=== PATIENT | female | born 1945 | race Caucasian/White ===

== ENCOUNTER → 2016-11-13 | Outpatient (CLI) | payer OTHER | LOC: BMCIMAGING 10:47 | PROVIDERS: ATTEND Internal Medicine | DX: Z12.31 Encounter for screening mammogram for malignant neoplasm of breast (principal) | CPT/HCPCS: G0202 ==

== ENCOUNTER 2016-11-18 21:17 | Emergency (ER) | payer OTHER ==
[2016-11-18 22:07] LABS: % IMMATURE GRANULYOCYTES 0.2 % (0.0-1.1); ABSOLUTE IMMATURE GRANULOCYTES 0.02 10^3/uL (0.00-0.10); ADD DIFF? NO; ADD MORPH? NO; ADD SCAN? NO; ATYPICAL LYMPHOCYTE FLAG 10 (0-99); FRAGMENT RBC FLAG 0 (0-99); HEMATOCRIT 42.9 % (38.0-47.0); HEMOGLOBIN 14.6 g/dL (12.6-16.3); LEFT SHIFT FLG 0 (0-99); LIPEMIA HEMOLYSIS FLAG 90 (0-99); MEAN CELL HEMOGLOBIN 31.2 pg (27.9-34.1); MEAN CELL VOLUME 91.7 fL (81.5-99.8); MEAN PLATELET VOLUME 10.1 fL (8.7-11.7); PLATELET CLUMPS FLAG 0 (0-99); PLATELET COUNT 339 10^3/uL (150-400); RED BLOOD CELL COUNT 4.68 10^6/uL (4.18-5.33); RED CELL DISTRIBUTION WIDTH 13.4 % (11.5-15.2)
[2016-11-18 22:24] LABS: ANION GAP 11 mEq/L (8-16); CALCIUM 9.7 mg/dL (8.5-10.4); CARBON DIOXIDE 24 mEq/l (22-31); CHLORIDE 103 mEq/L (97-110); CREATININE 0.7 mg/dL (0.6-1.0); GLOMERULAR FILTRATION RATE > 60; GLUCOSE 104 mg/dL (70-100); SODIUM 138 mEq/L (134-144)
[2016-11-18 22:40] LABS: COLOR PALE YELLOW; LEUKOCYTE ESTERASE,URINE NEGATIVE (NEGATIVE); NITRITE,URINE NEGATIVE (NEGATIVE)
[2016-11-18 23:27] VITALS: BP 122/63
--- NOTE | 2016-11-18 23:41 | EDPHY ---
H & P Stated Complaint: abd pain Time Seen by Provider: 11/18/16 22:07 HPI/ROS: Chief Complaint: Abdominal pain HPI: 71-year-old woman who is been having intermittent lower abdominal pain for the last 12 hours. It is sharp it comes and goes. When it comes it comes and lasts only seconds then goes completely away. At worst is a 6 to 7/10. She is having several of these episodes an hour. No nausea, vomiting, diarrhea or constipation. No urinary symptoms. Does not have any prior surgeries. Past medical history. No fevers or chills. No shortness of breath. She does state that she has had some mild dull chronic right side abdominal pain for the last 2 and half months was seen by her primary care physician is scheduled for an ultrasound on Wednesday. ROS: 10 point Review of Systems is negative except as noted in the HPI. PMH: None Medications: Ambien p.r.n. Allergies: Iodine from IVP dye. She has had CT scans of the abdomen with contrast but has been premedicated. Social History: No smoking, occasional alcohol, no recreational drug use Family History: non-contributory Physical Exam: Gen: Awake, Alert, No Distress HEENT: Nose: no rhinorrhea Eyes: PERRLA, EOMI Mouth: Moist mucosa Neck: Supple, no JVD Chest: nontender, lungs clear to auscultation Heart: S1, S2 normal, no murmur Abd: Soft, non-tender, no guarding Back: no CVA tenderness, no midline tenderness Ext: no edema, non-tender Skin: no rash Neuro: CN II-XII intact, Sensation grossly intact, Strength 5/5 in bilateral upper and lower extremities - Personal History Current Tetanus Diphtheria and Acellular Pertussis (TDAP): Yes - Medical/Surgical History Hx Asthma: No Hx Chronic Respiratory Disease: No Hx Diabetes: No Hx Cardiac Disease: Yes Hx Renal Disease: No Hx Cirrhosis: No Hx Alcoholism: No Hx HIV/AIDS: No Hx Splenectomy or Spleen Trauma: No Other PMH: PMH: MVP, HEMMORHOIDS - Social History Smoking Status: Never smoked Constitutional: Initial Vital Signs Temperature (C) 36.9 C 11/18/16 21:31 Heart Rate 86 11/18/16 21:31 Respiratory Rate 20 11/18/16 21:31 Blood Pressure 135/66 H 11/18/16 21:31 O2 Sat (%) 97 11/18/16 21:31 O2 Delivery Mode Room Air Allergies/Adverse Reactions: iodine [Iodine] Allergy (Verified 11/18/16 21:30) Home Medications: Medication Instructions Recorded Aspirin 325 mg (OTC) 12/26/15 Ambien 11/18/16 Melatonin 11/18/16 Medical Decision Making ED Course/Re-evaluation: 71-year-old with episodes of sharp abdominal pain. She has a completely soft benign abdomen. Blood work and urinalysis are completely unremarkable. She has normal vital signs. She is otherwise very well appearing. There is no evidence of acute intra-abdominal infection, blockage or vascular process. We have had a long conversation about workup in that I do not feel a CT scan would be particularly useful she has no tenderness or pain at this time. She has been reassured. She will return if this pain is returns and persists. She has not had pain in over an hour since she has been here. She will follow up with primary care physician in the next day or 2, return for worsening. - Data Points Laboratory Results: Laboratory Results 11/18/16 21:40 11/18/16 21:40 11/18/16 11/18/16 11/18/16 22:30 21:40 21:40 WBC 9.91 10^3/uL H 10^3/uL (3.80-9.50) RBC 4.68 10^6/uL 10^6/uL (4.18-5.33) Hgb 14.6 g/dL g/dL (12.6-16.3) Hct 42.9 % % (38.0-47.0) MCV 91.7 fL fL (81.5-99.8) MCH 31.2 pg pg (27.9-34.1) MCHC 34.0 g/dL g/dL (32.4-36.7) RDW 13.4 % % (11.5-15.2) Plt Count 339 10^3/uL 10^3/uL (150-400) MPV 10.1 fL fL (8.7-11.7) Neut % (Auto) 56.6 % % (39.3-74.2) Lymph % (Auto) 34.3 % % (15.0-45.0) [place] % (Auto) 5.5 % % (4.5-13.0) Eos % (Auto) 2.7 % % (0.6-7.6) Baso % (Auto) 0.7 % % (0.3-1.7) Nucleat RBC Rel Count 0.0 % % (0.0-0.2) Absolute Neuts (auto) 5.60 10^3/uL 10^3/uL (1.70-6.50) Absolute Lymphs (auto) 3.40 10^3/uL H 10^3/uL (1.00-3.00) Absolute Monos (auto) 0.55 10^3/uL 10^3/uL (0.30-0.80) Absolute Eos (auto) 0.27 10^3/uL 10^3/uL (0.03-0.40) Absolute Basos (auto) 0.07 10^3/uL 10^3/uL (0.02-0.10) Absolute Nucleated RBC 0.00 10^3/uL 10^3/uL (0-0.01) Immature Gran % 0.2 % % (0.0-1.1) Immature Gran # 0.02 10^3/uL 10^3/uL (0.00-0.10) Sodium 138 mEq/L mEq/L (134-144) Potassium 4.0 mEq/L mEq/L (3.5-5.2) Chloride 103 mEq/L mEq/L (97-110) Carbon Dioxide 24 mEq/l mEq/l (22-31) Anion Gap 11 mEq/L mEq/L (8-16) BUN 18 mg/dL mg/dL (7-23) Creatinine 0.7 mg/dL mg/dL (0.6-1.0) Estimated GFR > 60 Glucose 104 mg/dL H mg/dL (70-100) Calcium 9.7 mg/dL mg/dL (8.5-10.4) Urine Color PALE YELLOW Urine Appearance CLEAR Urine pH 6.0 (5.0-7.5) Ur Specific [place] 1.005 (1.002-1.030) Urine Protein NEGATIVE (NEGATIVE) Urine Ketones NEGATIVE (NEGATIVE) Urine Blood NEGATIVE (NEGATIVE) Urine Nitrate NEGATIVE (NEGATIVE) Urine Bilirubin NEGATIVE (NEGATIVE) Urine Urobilinogen NEGATIVE EU EU (0.2-1.0) Ur Leukocyte Esterase NEGATIVE (NEGATIVE) Urine RBC 1-3 /hpf /hpf (0-3) Urine WBC 1-3 /hpf /hpf (0-3) Ur Epithelial Cells TRACE /lpf /lpf (NONE-1+) Urine Glucose NEGATIVE (NEGATIVE) Departure - Departure Disposition: Home, Routine, Self-Care Clinical Impression: Abdominal pain Condition: Good Instructions: Abdominal Pain (ED) Additional Instructions: Return to the emergency department the pain returns and persists, worsening pain , fevers, chills, nausea, vomiting, or any other concerns. Follow up with primary care physician in next 1-2 days for re-evaluation. Referrals: Rosa Mccray MD [Primary Care Provider] - As per Instructions
[2016-11-18 23:55] VITALS: PULSE 78; RESP 16; TEMP 98.2; O2SAT 97
== END 2016-11-18 23:54 | disposition home or self-care (01) ==
DX: R10.9 Unspecified abdominal pain (principal); Z79.82 Long term (current) use of aspirin

== ENCOUNTER → 2016-11-23 | Outpatient (CLI) | payer OTHER | LOC: BMCIMAGING 09:24 | PROVIDERS: ATTEND Internal Medicine | DX: D25.9 Leiomyoma of uterus, unspecified (principal) ==

== ENCOUNTER 2017-01-23 17:48 | Emergency (ER) | payer OTHER ==
[2017-01-23 17:55] VITALS: TEMP 98.1
[2017-01-23] MEDS ORDERED: CIPROFLOXACIN 400 MG/DEXTROSE 200 ML IV ONE (18:34)
[2017-01-23] MEDS ORDERED: HYDROmorphONE/DILAUDID 1 MG/ML SYR IVP ONE (18:34)
[2017-01-23] MEDS ORDERED: NS 1,000 ML IV ONE (18:34)
[2017-01-23] MEDS ORDERED: ONDANSETRON 4 MG/2 ML VIAL IVP ONE (18:34)
--- NOTE | 2017-01-23 18:38 | EDPHY ---
H & P Stated Complaint: llq abd pain hx diverticulitis Time Seen by Provider: 01/23/17 18:28 HPI/ROS: CHIEF COMPLAINT: Left lower quadrant pain HISTORY OF PRESENT ILLNESS: The patient is a 71-year-old female who comes to the emergency department complaining of left lower quadrant pain exam [place] similar to previous episodes of diverticulitis. In the past she is improved with oral antibiotics. She states that her symptoms began today. She has not had a fever. No vomiting. Slight constipation. She does not have any significant medical history. She denies chest pain or shortness of breath. No urinary symptoms. REVIEW OF SYSTEMS: Constitutional: denies: chills, fever, recent illness, recent injury EENTM: denies: blurred vision, double vision, nose congestion Respiratory: denies: cough, shortness of breath Cardiac: denies: chest pain, irregular heart rate, lightheadedness, palpitations Gastrointestinal/Abdominal: See HPI denies: diarrhea, nausea, vomiting, blood streaked stools Genitourinary: denies: dysuria, frequency, hematuria, pain Musculoskeletal: denies: joint pain, muscle pain Skin: denies: lesions, rash, jaundice, bruising Neurological: denies: headache, numbness, paresthesia, tingling, dizziness, weakness Hematologic/Lymphatic: denies: blood clots, easy bleeding, easy bruising Immunologic/allergic: denies: HIV/AIDS, transplant EXAM: GENERAL: Well-appearing, well-nourished and in no acute distress. HEAD: Atraumatic, normocephalic. EYES: Pupils equal round and reactive to light, extraocular movements intact, sclera anicteric, conjunctiva are normal. ENT: TMs normal, nares patent, oropharynx clear without exudates. Moist mucous membranes. NECK: Normal range of motion, supple without lymphadenopathy or JVD. LUNGS: Breath sounds clear to auscultation bilaterally and equal. No wheezes rales or rhonchi. HEART: Regular rate and rhythm without murmurs, rubs or gallops. ABDOMEN: Mild right lower quadrant tenderness, no rebound , normoactive bowel sounds. No guarding, no rebound. No masses appreciated. BACK: No CVA tenderness, no spinal tenderness, step-offs or deformities EXTREMITIES: Normal range of motion, no pitting or edema. No clubbing or cyanosis. NEUROLOGICAL: Cranial nerves II through XII grossly intact. Normal speech, normal gait. 5/5 strength, normal movement in all extremities, normal sensation PSYCH: Normal mood, normal affect. SKIN: Warm, dry, normal turgor, no visible rashes or lesions. Source: Patient Exam Limitations: No limitations - Personal History Current Tetanus/Diphtheria Vaccine: Yes - Medical/Surgical History Hx Asthma: No Hx Chronic Respiratory Disease: No Hx Diabetes: No Hx Cardiac Disease: Yes Hx Renal Disease: No Hx Cirrhosis: No Hx Alcoholism: No Hx HIV/AIDS: No Hx Splenectomy or Spleen Trauma: No Other PMH: PMH: MVP, HEMMORHOIDS diverticulitis - Family History Significant Family History: No pertinent family hx - Social History Smoking Status: Never smoked Alcohol Use: Sober Drug Use: None Constitutional: Initial Vital Signs Temperature (C) 36.7 C 01/23/17 17:53 Heart Rate 83 01/23/17 17:53 Respiratory Rate 18 01/23/17 17:53 Blood Pressure 120/75 01/23/17 17:53 O2 Sat (%) 94 01/23/17 17:53 O2 Delivery Mode Room Air Allergies/Adverse Reactions: iodine [Iodine] Allergy (Verified 01/23/17 17:51) Home Medications: Medication Instructions Recorded Aspirin 325 mg (OTC) 12/26/15 Ambien 11/18/16 Melatonin 11/18/16 Ciprofloxacin [Cipro] 500 mg PO BID #14 tab 01/23/17 Hydrocodone/APAP 5/325 [[place] 1 - 2 tab PO Q4H PRN #10 tab 01/23/17 5/325 (RX)] metroNIDAZOLE [Flagyl] 500 mg PO BID #20 tab 01/23/17 Medical Decision Making ED Course/Re-evaluation: The patient is here with symptoms that seem similar to her previous episodes of diverticulitis. I suggested CT scan to evaluate which she declines. She would prefer to simply take antibiotics and if she is not better in 48 hours to return and have her CT scan then. She is concerned about radiation and cost. She has normal vital signs and no peritonitis on exam. I agree that this is reasonable and gave her strict return precautions. I will start her with an IV dose of ciprofloxacin and Flagyl which worked for last time.+ 8:50 p.m. the patient is having some irritation from the ciprofloxacin which just began. She states that feels like she has some burning in her arm. We will given this to her orally. She has not had a problem with that in the past. Otherwise she is ready to go home. We will observe her. Differential Diagnosis: Partial list of the Differential diagnosis considered include but were not limited to; diverticulitis, gastritis, perforation and although unlikely based on the history and physical exam, I also considered ischemic bowel, volvulus, obstruction. I discussed these differential diagnoses and the plan with the patient as well as the usual and expected course. The patient understands that the diagnosis is provisional and that in medicine we are not always correct and that further workup is often warranted. Usual and customary warnings were given. All of the patient's questions were answered. The patient was instructed to return to the emergency department should the symptoms at all worsen or return, otherwise to followup with the physician as we discussed. - Data Points Laboratory Results: Laboratory Results 01/23/17 18:35 01/23/17 18:35 Medications Given: Discontinued Medications Hydrocodone Bitart/Acetaminophen ([place] 5/325mg [place]#6) 1 btl TAKEHOME EDNOW ONE Stop: 01/23/17 21:10 Last Admin: 01/23/17 21:10 Dose: 1 btl Ciprofloxacin (Cipro) 500 mg PO EDNOW ONE PRN Reason: Protocol Stop: 01/23/17 20:57 Last Admin: 01/23/17 21:10 Dose: 500 mg Hydromorphone HCl (Dilaudid) 0.5 mg IVP EDNOW ONE Stop: 01/23/17 18:35 Last Admin: 01/23/17 18:52 Dose: 0.5 mg Ciprofloxacin/Dextrose (Cipro 400 Mg (Premix)) 200 mls @ 200 mls/hr IV EDNOW ONE PRN Reason: Protocol Stop: 01/23/17 19:33 Last Admin: 01/23/17 20:30 Dose: 200 mls Sodium Chloride (Ns) 1,000 mls @ 0 mls/hr IV ONCE ONE; Wide Open PRN Reason: Protocol Stop: 01/23/17 18:35 Last Admin: 01/23/17 18:52 Dose: 1,000 mls Metronidazole/Sodium Chloride (Flagyl 500 Mg (Premix)) 100 mls @ 100 mls/hr IV EDNOW ONE PRN Reason: Protocol Stop: 01/23/17 19:34 Last Admin: 01/23/17 18:54 Dose: 100 mls Ondansetron HCl (Zofran) 4 mg IVP EDNOW ONE Stop: 01/23/17 18:35 Last Admin: 01/23/17 18:52 Dose: 4 mg Departure - Departure Disposition: Home, Routine, Self-Care Clinical Impression: Diverticulitis Qualifiers: Diverticulitis site: unspecified part of intestinal tract Diverticulitis bleeding: unspecified bleeding status Diverticulitis complication: unspecified complication status Qualified Code(s): K57.92 - Diverticulitis of intestine, part unspecified, without perforation or abscess without bleeding Condition: Fair Instructions: Hydrocodone/Acetaminophen (By mouth), Diverticulitis (ED) Referrals: Rosa Mccray MD [Primary Care Provider] - As per Instructions Prescriptions: Ciprofloxacin [Cipro] 500 mg PO BID #14 tab Hydrocodone/APAP 5/325 [[place] 5/325 (RX)] 1 - 2 tab PO Q4H PRN #10 tab PRN Reason: Pain, Moderate metroNIDAZOLE [Flagyl] 500 mg PO BID #20 tab
[2017-01-23 18:50] LABS: % IMMATURE GRANULYOCYTES 0.4 % (0.0-1.1); ABSOLUTE IMMATURE GRANULOCYTES 0.05 10^3/uL (0.00-0.10); ADD DIFF? NO; ADD MORPH? NO; ADD SCAN? NO; ATYPICAL LYMPHOCYTE FLAG 0 (0-99); FRAGMENT RBC FLAG 0 (0-99); HEMATOCRIT 43.5 % (38.0-47.0); HEMOGLOBIN 14.8 g/dL (12.6-16.3); LEFT SHIFT FLG 10 (0-99); LIPEMIA HEMOLYSIS FLAG 90 (0-99); MEAN CELL HEMOGLOBIN 31.6 pg (27.9-34.1); MEAN CELL VOLUME 92.8 fL (81.5-99.8); MEAN PLATELET VOLUME 10.1 fL (8.7-11.7); PLATELET CLUMPS FLAG 40 (0-99); PLATELET COUNT 319 10^3/uL (150-400); RED BLOOD CELL COUNT 4.69 10^6/uL (4.18-5.33); RED CELL DISTRIBUTION WIDTH 13.2 % (11.5-15.2)
[2017-01-23 19:37] LABS: ALANINE AMINOTRANSFERASE 38 IU/L (9-52); ALBUMIN 4.4 g/dL (3.5-5.0); ALKALINE PHOSPHATASE 62 IU/L (38-126); ANION GAP 15 mEq/L (8-16); ASPARTATE AMINOTRANSFERASE 25 IU/L (14-46); BILIRUBIN,TOTAL 0.6 mg/dL (0.1-1.4); BILIRUBIN-CONJUGATED 0.3 mg/dL (0.0-0.5); BILIRUBIN-UNCONJUGATED 0.3 mg/dL (0.0-1.1); CARBON DIOXIDE 22 mEq/l (22-31); CHLORIDE 107 mEq/L (97-110); CREATININE 0.8 mg/dL (0.6-1.0); GLOMERULAR FILTRATION RATE > 60; GLUCOSE 107 mg/dL (70-100); SODIUM 144 mEq/L (134-144); TOTAL PROTEIN 7.4 g/dL (6.3-8.2)
[2017-01-23 20:49] VITALS: BP 123/65; PULSE 84; RESP 16; O2SAT 96
[2017-01-23] MEDS ORDERED: CIPROFLOXACIN 500 MG TAB PO ONE (20:56)
[2017-01-23] MEDS ORDERED: HYDROCOD/APAP 5/325 PREPACK#6 BTL TAKEHOME ONE ×2 (21:09)
== END 2017-01-23 21:30 | disposition home or self-care (01) ==
DX: K57.92 Diverticulitis of intestine, part unspecified, without perforation or abscess without bleeding (principal); E86.9 Volume depletion, unspecified; Z79.82 Long term (current) use of aspirin
CPT/HCPCS: 96365; 96367; 96375; 99284; J0744; J1170; J2405

== ENCOUNTER → 2017-08-26 | Outpatient (CLI) | payer OTHER | LOC: BMCIMAGING 14:56 | PROVIDERS: ATTEND Orthopaedic Surgery Hand Surgery | DX: M50.31 Other cervical disc degeneration, high cervical region (principal); M48.02 Spinal stenosis, cervical region; M18.0 Bilateral primary osteoarthritis of first carpometacarpal joints ==

== ENCOUNTER → 2017-09-22 | Outpatient (CLI) | payer OTHER | LOC: BMCIMAGING 08:39 | PROVIDERS: ATTEND Internal Medicine | DX: R07.9 Chest pain, unspecified (principal) | CPT/HCPCS: 71101-PO ==

== ENCOUNTER 2017-10-27 08:53 | Emergency (ER) | payer OTHER ==
[2017-10-27 09:07] VITALS: TEMP 97.9
--- NOTE | 2017-10-27 09:16 | EDPHY ---
HPI/HX/ROS/PE/MDM Narrative: CHIEF COMPLAINT: "Diverticulitis" HPI: This patient is a 72 y/o female with history of diverticulitis complaining of lower left abdominal pain similar consistent with her usual diverticulitis presentation. Her symptoms began around 12:00 yesterday. She was evaluated at urgent care and given a prescription for Augmentin. Today she continues to have sharp LLQ pain in exactly the same location as her other episodes of diverticulitis. Her discomfort is increased when she sits upright. She hardly slept last night due to pain. This morning, she called the phone nurse who recommended she present to the ED. She is concerned that her antibiotics are not working. She denies hematochezia, hematemesis, or melena. No fever, vomiting , chest pain, shortness of breath, urinary complaints, or other associated symptoms. REVIEW OF SYSTEMS: Aside from elements discussed in the HPI, a comprehensive 10-point review of systems was reviewed and is negative. PMH: Diverticulitis. Mitral valve prolapse. SOCIAL HISTORY: Lives in [place]. Retired. Single. PHYSICAL EXAM: General:Patient is alert, in no acute distress. ENT:Eyes are normal to inspection. ENT inspection normal. Neck: Normal inspection. Full range of motion. Respiratory:No respiratory distress. Breath sounds normal bilaterally. Cardiovascular: Regular rate and rhythm. Strong peripheral pulses. Normal cap refill. Abdomen: Moderate to severe tenderness in LLQ. There are no peritoneal signs. There are normal bowel sounds. Back: Normal to inspection. No tenderness to palpation. Skin: Normal color. No rash. Warm and dry. Extremities: Normal appearance. Full range of motion. Neuro: Oriented x3. Normal motor function. Normal sensory function. ED Course: 72 y/o female presents with LLQ pain onset yesterday around 12:00pm. Exam reveals moderate to severe tenderness in the LLQ. IV established. Plan for labs including CBC, chemistries, UA. Plan to administer 30mg IV Toradol and 1L IV NS for symptom relief. Discussed possibilities for imaging studies. This is her fourth episode of these symptoms and she had a CT scan 10/19/14 showing diverticulitis. She declines repeat CT. She is scheduled for CT chest on Wednesday , and I offered to do both today, but the patient has an iodine allergy and will be taking medication for the next three days to prepare for this. Laboratory studies unremarkable. UA negative for UTI or hematuria. WBC is not elevated. At the time of the patients CT in 2014 which was positive for diverticulitis, her WBC was mildly elevated at 12,000. 11:15 Reassessed patient. She continues to decline CT. Plan to discharge home in good condition. She will continue taking Augmentin. I will provide prescriptions for Bactrim and Flagyl and she will begin taking these if her symptoms do not begin to resolve within three days. Follow up and return precautions discussed. She is comfortable with this plan. - Data Points Laboratory Results: Laboratory Results 10/27/17 09:40 10/27/17 09:40 10/27/17 10/27/17 10/27/17 10:25 09:40 09:40 WBC 8.53 10^3/uL 10^3/uL (3.80-9.50) RBC 4.74 10^6/uL 10^6/uL (4.18-5.33) Hgb 14.9 g/dL g/dL (12.6-16.3) Hct 44.1 % % (38.0-47.0) MCV 93.0 fL fL (81.5-99.8) MCH 31.4 pg pg (27.9-34.1) MCHC 33.8 g/dL g/dL (32.4-36.7) RDW 13.6 % % (11.5-15.2) Plt Count 294 10^3/uL 10^3/uL (150-400) MPV 9.9 fL fL (8.7-11.7) Neut % (Auto) 78.7 % H % (39.3-74.2) Lymph % (Auto) 11.3 % L % (15.0-45.0) [place] % (Auto) 7.0 % % (4.5-13.0) Eos % (Auto) 2.5 % % (0.6-7.6) Baso % (Auto) 0.4 % % (0.3-1.7) Nucleat RBC Rel Count 0.0 % % (0.0-0.2) Absolute Neuts (auto) 6.72 10^3/uL H 10^3/uL (1.70-6.50) Absolute Lymphs (auto) 0.96 10^3/uL L 10^3/uL (1.00-3.00) Absolute Monos (auto) 0.60 10^3/uL 10^3/uL (0.30-0.80) Absolute Eos (auto) 0.21 10^3/uL 10^3/uL (0.03-0.40) Absolute Basos (auto) 0.03 10^3/uL 10^3/uL (0.02-0.10) Absolute Nucleated RBC 0.00 10^3/uL 10^3/uL (0-0.01) Immature Gran % 0.1 % % (0.0-1.1) Immature Gran # 0.01 10^3/uL 10^3/uL (0.00-0.10) Sodium 143 mEq/L mEq/L (135-145) Potassium 4.3 mEq/L mEq/L (3.5-5.2) Chloride 109 mEq/L mEq/L (97-110) Carbon Dioxide 24 mEq/l mEq/l (22-31) Anion Gap 10 mEq/L mEq/L (8-16) BUN 14 mg/dL mg/dL (7-23) Creatinine 0.7 mg/dL mg/dL (0.6-1.0) Estimated GFR > 60 Glucose 102 mg/dL H mg/dL (70-100) Calcium 9.0 mg/dL mg/dL (8.5-10.4) Urine Color YELLOW Urine Appearance CLEAR Urine pH 6.0 (5.0-7.5) Ur Specific [place] 1.011 (1.002-1.030) Urine Protein NEGATIVE (NEGATIVE) Urine Ketones TRACE H (NEGATIVE) Urine Blood NEGATIVE (NEGATIVE) Urine Nitrate NEGATIVE (NEGATIVE) Urine Bilirubin NEGATIVE (NEGATIVE) Urine Urobilinogen NEGATIVE EU EU (0.2-1.0) Ur Leukocyte Esterase NEGATIVE (NEGATIVE) Urine Glucose NEGATIVE (NEGATIVE) Medications Given: Discontinued Medications Sodium Chloride (Ns) 1,000 mls @ 0 mls/hr IV ONCE ONE PRN Reason: Wide Open Stop: 10/27/17 09:42 Last Admin: 10/27/17 09:45 Dose: 1,000 mls Ketorolac Tromethamine (Toradol) 15 mg IVP EDNOW ONE Stop: 10/27/17 09:34 Last Admin: 10/27/17 09:45 Dose: 15 mg General Time Seen by Provider: 10/27/17 09:14 Initial Vital Signs: Initial Vital Signs Temperature (C) 36.6 C 10/27/17 09:04 Heart Rate 88 10/27/17 09:04 Respiratory Rate 18 10/27/17 09:04 Blood Pressure 100/70 10/27/17 09:04 O2 Sat (%) 97 10/27/17 09:04 O2 Delivery Mode Room Air Allergies/Adverse Reactions: iodine [Iodine] Allergy (Verified 10/27/17 09:01) Home Medications: Medication Instructions Recorded Aspirin 325 mg (OTC) 12/26/15 Augmentin 875 MG TAB (*) 10/27/17 levOFLOXACIN [levAQUIN] 750 mg PO DAILY #10 tab 10/27/17 metroNIDAZOLE [Flagyl] 500 mg PO BID #20 tab 10/27/17 Departure - Departure Disposition: Home, Routine, Self-Care Clinical Impression: Diverticulitis Condition: Good Instructions: Diverticulitis (ED), Diverticulitis Diet (ED) Additional Instructions: 1. Continue taking Augmentin as prescribed. If symptoms do not begin to resolve within three days, fill your prescriptions and begin taking Levaquin and Flagyl as prescribed. 2. Follow up with your primary care provider in 2-3 days. 3. Return to the emergency department for worsening or changing pain, uncontrollable vomiting or diarrhea, fever, blood in your stool, or other worsening of condition. Referrals: Rosa Mccray MD [Primary Care Provider] - As per Instructions Prescriptions: levOFLOXACIN [levAQUIN] 750 mg PO DAILY #10 tab metroNIDAZOLE [Flagyl] 500 mg PO BID #20 tab Report Scribed for: Shon Smith Report Scribed by: Nelsy Park Date of Report: 10/27/17 Time of Report: 09:16 Physician Review and Approval Statement: Portions of this note were transcribed by an ED scribe. I personally performed the history, physical exam, and medical decision making; and confirm the accuracy of the information in the transcribed note.
[2017-10-27] MEDS ORDERED: KETOROLAC 30 MG/1 ML SDV IVP ONE (09:33)
[2017-10-27] MEDS ORDERED: NS 1,000 ML IV ONE (09:41)
[2017-10-27 09:56] LABS: PLATELET COUNT 294 10^3/uL (150-400)
[2017-10-27 11:01] VITALS: BP 111/73; PULSE 83; RESP 16; O2SAT 93
== END 2017-10-27 11:24 | disposition home or self-care (01) ==
DX: K57.92 Diverticulitis of intestine, part unspecified, without perforation or abscess without bleeding (principal); Z79.82 Long term (current) use of aspirin
CPT/HCPCS: 96361; 96374; 99284; J1885

== ENCOUNTER → 2017-10-29 | Outpatient (CLI) | payer OTHER ==
[~2017-10-29] MED LIST: IOPAMIDOL (ISOVUE-300) 100 ML BTL ONE
== END ==
LOC: FIMAGING 10:04
PROVIDERS: ATTEND Internal Medicine
DX: R07.9 Chest pain, unspecified (principal); J98.11 Atelectasis
CPT/HCPCS: 71260; Q9967

== ENCOUNTER → 2017-12-29 | Outpatient (CLI) | payer OTHER | LOC: FIMAGING 09:55 | PROVIDERS: ATTEND Surgery | DX: K57.30 Diverticulosis of large intestine without perforation or abscess without bleeding (principal); D25.9 Leiomyoma of uterus, unspecified | CPT/HCPCS: 74177; Q9967 ==

== ENCOUNTER → 2018-09-27 | Outpatient (CLI) | payer OTHER | LOC: FIMAGING 14:44 | PROVIDERS: ATTEND Internal Medicine | DX: R10.2 Pelvic and perineal pain (principal) ==

== ENCOUNTER → 2018-11-17 | Outpatient (CLI) | payer OTHER | LOC: FIMAGING 19:31 | PROVIDERS: ATTEND Orthopaedic Surgery | DX: S83.241A Other tear of medial meniscus, current injury, right knee, initial encounter (principal); M22.41 Chondromalacia patellae, right knee ==

== ENCOUNTER → 2018-12-02 | Outpatient (CLI) | payer OTHER | LOC: FIMAGING 14:56 | PROVIDERS: ATTEND Internal Medicine | DX: K57.30 Diverticulosis of large intestine without perforation or abscess without bleeding (principal) | CPT/HCPCS: 74177; J1200; Q9967 ==